=== PATIENT | male | born 1985 | race African-American/Black ===

== ENCOUNTER 2018-11-12 05:51 | Day surgery (SDC) | payer OTHER ==
[~2018-11-12] VITALS: Ht 172.7 cm; Wt 76.7 kg
[~2018-11-12 05:51] MED LIST: ACET500T33 PO; BACL10TA PO; GABA600T7 PO; MELO7.5T29 PO
[2018-11-12] MEDS ORDERED: BUPIVACAINE 0.25% 50 ML VIAL. ONE (06:01)
[2018-11-12] MEDS ORDERED: PROCHLORPERAZINE 10 MG/2 ML VIAL. IV PRN (07:00)
[2018-11-12] MEDS ORDERED: IV RINGERS,LACTATED 1000ML 1,000 ML IV SCH (07:00)
[2018-11-12] MEDS ORDERED: ONDANSETRON PF 4 MG/2 ML VIAL. IV PRN (07:00)
[2018-11-12] MEDS ORDERED: LIDOCAINE 1% PF 2 ML VIAL. ID PRN (07:00)
[2018-11-12] MEDS ORDERED: fentaNYL PF VIAL 100 MCG/2 ML VIAL IV PRN ×2 (07:00)
[2018-11-12] MEDS ORDERED: MORPHINE SULFATE 2 MG/ML VIAL. IV PRN (07:00)
[2018-11-12] MEDS ORDERED: HYDROmorphone 2 MG/ML VIAL IV PRN (07:00)
[2018-11-12] MEDS ORDERED: PROPOFOL 20 ML IV ONE ×2 (07:17)
[2018-11-12] MEDS ORDERED: SEVOFLURANE 31 TO 60 MINUTES. IH ONE (07:17)
--- NOTE | 2018-11-12 07:54 | DISCH ---
DISCHARGE INSTRUCTIONS Condition on Discharge Condition on Discharge: Stable Activity After Discharge Activity Instructions for Disc: Other, see below (no lifting or hard grasp with left hand) Diet after Discharge Diet after Discharge: Regular Wound Incision Care Wound/Incision Care: Ice to area for comfort, Keep wound/cast CDI, Do not change dressing (sutures may be removed in 10-14 days, keep dressing on until that time for protection) Contacting the [facility] after DC Call your doctor for: Concerns you may have Follow-Up Follow up with: Dr. Ricketts 10-14 days or remove sutures at facility with later follow-up ANTOLIN RICKETTS MD Nov 12, 2018 07:54
[2018-11-12] MEDS ORDERED: TRAM50TA PO (07:56)
[2018-11-12] MEDS ORDERED: fentaNYL PF VIAL 100 MCG/2 ML VIAL ONE (08:51)
[2018-11-12] MEDS ORDERED: PROCHLORPERAZINE 10 MG/2 ML VIAL. ONE (08:51)
[2018-11-12 09:35] VITALS: BP 99/57
[2018-11-12] MEDS ORDERED: traMADol 50 MG TABLET ONE (09:39)
[2018-11-12] MEDS ORDERED: traMADol 50 MG TABLET PO ONE (09:45)
--- NOTE | 2018-11-12 17:42 | PDOC4 ---
Operative Note Operative Note Date of surgery: 11/12/2018 Preoperative diagnosis: Left carpal tunnel syndrome Postoperative diagnosis: Same Operative procedure: Left carpal tunnel release Surgeon: Jamarcus Anesthesia: Gen. Estimated blood loss: Less than 1 mL Complications: None Operative indications: Please see my preoperative clinic note for detailed operative indications and note that patient has had numbness and tingling in the median nerve distribution on the left and has had previous extensive trauma to the left upper extremity with current clinical symptoms backed up by EMG findings of carpal tunnel syndrome, median nerve compression at the wrist. I went through operative and nonoperative treatment options with him risks benefits postoperative course of carpal tunnel release the fact that it may not completely resolve his symptoms there is a possibility of nerve or blood vessel damage recurrence infection medical or other anesthetic complications among others he wishes to proceed with surgical evaluation and treatment. Operative text: Patient was identified procedure verified patient placed in the supine position on the operating table. After adequate amounts of general anesthesia were administered the left upper extremity was prepped and draped in standard sterile fashion with an upper arm tourniquet. After timeout was performed patient procedure identified and verified the left upper extremity was exsanguinated by Esmarch bandage tourniquet inflated to 250 mmHg and a longitudinal incision was made just distal to the distal wrist crease dissection carried out to the transverse carpal ligament with any vessels coagulated with electrocautery. The transverse carpal ligament was completely released from proximal to distal and verified to be complete release visually as well as palpably. Median nerve was noted to have moderate compression no abnormalities or synovitis was noted around the tendons. Thorough irrigation carried out normal saline solution closure accomplished with 3-0 nylon suture in a vertical mattress and simple fashion. Sterile dressings were applied patient was returned recovery room in stable condition having tolerated procedure well fingers were noted be warm pink following deflation of the tourniquet ANTOLIN WALKER MD Nov 12, 2018 17:42
== END 2018-11-12 09:46 | disposition home or self-care (01) ==
LOC: SURG 05:51
PROVIDERS: ATTEND Orthopaedic Surgery
DX: G56.02 Carpal tunnel syndrome, left upper limb (principal); Z79.899 Other long term (current) drug therapy
CPT/HCPCS: 64721; J0690; J0780; J2704; J3010; J3490